=== PATIENT | female | born 2000 | race Caucasian/White ===

== ENCOUNTER 2021-12-02 14:14 | Emergency (ER) | payer OTHER, SELFPAY ==
[2021-12-03 18:43] LABS: SARS-CoV-2 PCR by NAA Not Detected (NotDetected)
== END 2021-12-02 17:35 | disposition home or self-care (01) ==
LOC: CSHERS 14:14
DX: O99.891 Other specified diseases and conditions complicating pregnancy (principal); R06.00 Dyspnea, unspecified; Z20.822 Contact with and (suspected) exposure to COVID-19; Z3A.37 37 weeks gestation of pregnancy
CPT/HCPCS: 93005; 93010; 99283; U0003; U0005

== ENCOUNTER 2021-12-10 09:54 | Inpatient (IN) | payer OTHER ==
[~2021-12-10 09:54] MED LIST: Bupivacaine/Epinephrine 0.25% 30 ML VIAL ONE; ePHEDrine Sulfate 50 MG/10 ML VIAL ONE
[2021-12-10 10:28] VITALS: BMI 41.9
[2021-12-10] MEDS ORDERED: hydrALAZINE 20 MG/ML VIAL SLOW IVP PRN ×2 (11:37→15:17)
[2021-12-10 12:30] LABS: Creatinine, Urine 267.26 mg/dL (47-110)
[2021-12-10 14:05] LABS: Hemoglobin 11.9 g/dL (12.0-15.5); Mean Corpuscular HGB CONC 33.7 g/dL (32.0-36.0); Mean Corpuscular Hemoglobin 29.6 pg (27.0-33.0); Mean Corpuscular Volume 87.8 fl (81.6-98.3); Mean Platelet Volume 12.6 fl (7.4-10.4); Platelet Count 144 10x3/uL (150-450); Red Blood Cell (RBC) Count 4.02 10x6/uL (3.90-5.03); White Blood Cell (WBC) Count 13.8 10x3/uL (3.5-10.5)
[2021-12-10 14:14] LABS: ALT (SGPT) 11 U/L (8-55); AST (SGOT) 12 U/L (5-34); Albumin 3.6 g/dL (3.5-5.0); Alkaline Phosphatase 163 U/L (40-100); Anion Gap 16 mmol/L (10-20); BUN (Urea Nitrogen) 8 mg/dL (7.0-18.7); Bilirubin, Total 0.6 mg/dL (0.2-1.2); Calc. Creatinine Clearance 253 mL/min (70-130); Calcium 9.1 mg/dL (7.8-10.44); Carbon Dioxide 21 mmol/L (22-29); Chloride 105 mmol/L (98-107); Globulin 3.4 g/dL (2.4-3.5); Glucose 77 mg/dL (70-105); Potassium 4.1 mmol/L (3.5-5.1); Sodium 138 mmol/L (136-145)
[2021-12-10 14:32] LABS: Hep B Surf Ag Non-Reactive S/CO (NonReactive); Syphilis Antibody Nonreactive (Nonreactive); Syphilis Antibody Index 0.02 S/CO (<1.00 Non-Reactive)
[2021-12-10 14:57] LABS: HBSAg Index 0.19 S/CO (0-0.99)
[2021-12-10] MEDS ORDERED: Docusate 100 MG CAP PO PRN (15:17)
[2021-12-10] MEDS ORDERED: Carboprost 250 MCG/ML AMP IM PRN (15:17)
[2021-12-10] MEDS ORDERED: Misoprostol 200 MCG TAB PR PRN (15:17)
[2021-12-10] MEDS ORDERED: Lidocaine 1% (PF) 30 ML VIAL SC PRN (15:17)
[2021-12-10] MEDS ORDERED: Butorphanol Tartrate 1 MG/ML VIAL SLOW IVP PRN (15:17)
[2021-12-10] MEDS ORDERED: Acetaminophen 500 MG TAB PO PRN (15:17)
[2021-12-10] MEDS ORDERED: Zolpidem Tartrate 5 MG TAB PO PRN (15:17)
[2021-12-10] MEDS ORDERED: Diphenoxylate HCl/Atropine Tablet PO PRN ×2 (15:17)
[2021-12-10] MEDS ORDERED: Ondansetron PF 4 MG/2 ML Vial IVP PRN (15:17)
[2021-12-10] MEDS ORDERED: HYDROcodone/Acetaminophen 5/325 mg Tablet PO PRN (15:17)
[2021-12-10] MEDS ORDERED: Methylergonovine 0.2 MG/ML VIAL IM PRN (15:17)
[2021-12-10] MEDS ORDERED: Ibuprofen 800 MG TAB PO PRN (15:17)
[2021-12-10] MEDS ORDERED: Promethazine HCl 25 MG/ML VIAL IM PRN (15:17)
[2021-12-10] MEDS ORDERED: NS w/ Oxytocin 30 units 500 ML IV SCH ×2 (15:30)
[2021-12-10] MEDS ORDERED: Misoprostol 100 MCG TAB ONE (15:33)
[2021-12-10] MEDS: Misoprostol 100 MCG TAB VAG SCH ×2 (15:36→22:17)
[2021-12-10] MEDS ORDERED: Penicillin G Potassium 5 MILL.UNITS in Sodium Chloride 0.9% 100 ML IVPB SCH (16:00)
[2021-12-10 17:41] LABS: SARS-CoV-2 NAA Rapid Test Not Detected (NotDetected)
[2021-12-10] MEDS: Penicillin G 2.5 MILL.units 2.5 MILL.UNITS in Premix Bag 1 BAG IVPB SCH (22:05)
[2021-12-11] MEDS: Lactated Ringer's 1,000 ML IV SCH ×3 (02:15→14:55)
[2021-12-11] MEDS: Penicillin G 2.5 MILL.units 2.5 MILL.UNITS in Premix Bag 1 BAG IVPB SCH ×3 (02:15→14:56)
[2021-12-11] MEDS ORDERED: Fentanyl 2 mcg/Bup 0.1% Cadd 100 ML ONE (02:31)
[2021-12-11] MEDS ORDERED: diphenhydrAMINE 50 MG/ML VIAL IVP PRN (03:29)
[2021-12-11] MEDS ORDERED: Promethazine HCl 25 MG/ML VIAL IM PRN ×2 (03:29→11:17)
[2021-12-11] MEDS ORDERED: Naloxone HCl 0.4 mg/ml Vial IVP PRN ×2 (03:29)
[2021-12-11] MEDS ORDERED: Acetaminophen 325 MG TAB PO PRN (03:29)
[2021-12-11] MEDS ORDERED: Ondansetron PF 4 MG/2 ML Vial IVP PRN ×2 (03:29→11:17)
[2021-12-11] MEDS ORDERED: Lactated Ringer's 500 ML IV PRN (03:29)
[2021-12-11] MEDS ORDERED: Hydrocerin (Eucerin) Cream 120 gm Jar TOP PRN (03:29)
[2021-12-11] MEDS ORDERED: ePHEDrine Sulfate 50 MG/10 ML VIAL SLOW IVP PRN (03:29)
[2021-12-11] MEDS ORDERED: Communication Order-Pharmacy FS SCH (03:30)
[2021-12-11] MEDS ORDERED: Fentanyl 2 mcg/Bupivacaine 0.1% Cassette 100 ML EPIDURAL SCH (03:30)
[2021-12-11] MEDS: Misoprostol 100 MCG TAB VAG SCH ×4 (06:04→14:56)
[2021-12-11] MEDS ORDERED: Lanolin Ointment 7 GM TUBE TOP PRN (11:17)
[2021-12-11] MEDS ORDERED: NS w/ Oxytocin 30 units 500 ML IV SCH (11:17)
[2021-12-11] MEDS ORDERED: Boostrix 0.5 ML (Tdap) VIAL IM ONE (11:17)
[2021-12-11] MEDS ORDERED: HYDROcodone/Acetaminophen 5/325 mg Tablet PO PRN (11:17)
[2021-12-11] MEDS ORDERED: diphenhydrAMINE 25 MG CAP PO PRN (11:17)
[2021-12-11] MEDS ORDERED: Measles/Mumps/Rubella 10 MCG/0.5 ML VIAL SC ONE (11:17)
[2021-12-11] MEDS ORDERED: Milk Of Magnesia 30 ML UDCUP PO PRN (11:17)
[2021-12-11] MEDS ORDERED: Benzocaine-Menthol 82.5 ML CAN TOP PRN (11:17)
[2021-12-11] MEDS ORDERED: Misoprostol 200 MCG TAB VAG PRN (11:17)
[2021-12-11] MEDS ORDERED: hydrALAZINE 20 MG/ML VIAL SLOW IVP PRN (11:17)
[2021-12-11] MEDS ORDERED: Zolpidem Tartrate 5 MG TAB PO PRN (11:17)
[2021-12-11] MEDS ORDERED: Preparation H Ointment 28 GM TUBE PR PRN (11:17)
[2021-12-11] MEDS ORDERED: Varicella virus, LIVE 0.5 ML VIAL SC ONE (11:17)
[2021-12-11] MEDS ORDERED: Bisacodyl 10 MG SUPP PR PRN (11:17)
[2021-12-11] MEDS: Ibuprofen 800 MG TAB PO SCH ×2 (14:00→21:42)
[2021-12-11] MEDS: Ferrous Sulfate 325 MG TAB PO SCH (14:56)
[2021-12-11] MEDS: Docusate 100 MG CAP PO SCH (21:41)
[2021-12-12 04:44] LABS: Hemoglobin 10.2 g/dL (12.0-15.5); Mean Corpuscular HGB CONC 32.9 g/dL (32.0-36.0); Mean Corpuscular Hemoglobin 29.3 pg (27.0-33.0); Mean Corpuscular Volume 89.1 fl (81.6-98.3); Mean Platelet Volume 12.4 fl (7.4-10.4); Platelet Count 116 10x3/uL (150-450); RBC Distribution Width 13.2 % (11.5-14.5); Red Blood Cell (RBC) Count 3.48 10x6/uL (3.90-5.03); White Blood Cell (WBC) Count 10.8 10x3/uL (3.5-10.5)
[2021-12-12] MEDS: Ibuprofen 800 MG TAB PO SCH (05:20)
[2021-12-12 07:47] VITALS: BP 117/65; TEMP 98
[2021-12-12] MEDS ORDERED: Prenatal Vitamin 1 TAB PO SCH (09:00)
[2021-12-12] MEDS: Docusate 100 MG CAP PO SCH (09:07)
[2021-12-12] MEDS: Ferrous Sulfate 325 MG TAB PO SCH (09:11)
== END 2021-12-12 13:50 | disposition home or self-care (01) | DRG 807 ==
LOC: CSHLD/OP 09:54 → CSHLD 15:47 → CSHPP 12-11 11:42
PROVIDERS: ADMIT Obstetrics & Gynecology; ATTEND Obstetrics & Gynecology
PROC: 10E0XZZ Delivery of Products of Conception, External Approach (ICD-10-PCS; principal; 2021-12-11)
PROC: 3E0P7VZ Introduction of Hormone into Female Reproductive, Via Natural or Artificial Opening (ICD-10-PCS; 2021-12-11)
DX: O13.4 Gestational [pregnancy-induced] hypertension without significant proteinuria, complicating childbirth (principal); Z37.0 Single live birth; Z3A.38 38 weeks gestation of pregnancy; O34.211 Maternal care for low transverse scar from previous cesarean delivery; Z20.822 Contact with and (suspected) exposure to COVID-19; O99.824 Streptococcus B carrier state complicating childbirth
CPT/HCPCS: 36415; 51702; 80053; 82570; 84156; 85027; 86780; 86850; 86900; 86901; 87340; 90707; 90715; 99285; J2540; J2590; J3490; J7120; U0002